=== PATIENT | male | born 1960 | race Two or more races ===

== ENCOUNTER 2021-12-31 10:54 | Inpatient (IN) | payer MEDICAID, MEDICARE, OTHER ==
[~2021-12-31] VITALS: Ht 185.4 cm; Wt 107.7 kg
[2021-12-31 11:41] LABS: Basophils # (auto) 0 10 ^3/uL (0-0.2); Basophils % (auto) 0.6 % (0.0-2.0); Eosinophils # (auto) 0.1 10 ^3/uL (0-0.8); Lymphocytes # (auto) 1.2 10 ^3/uL (0.4-5.4); Monocytes # (auto) 0.5 10 ^3/uL (0-1.3); White Blood Cell 5.7 10^3/uL (4.4-10.8)
[2021-12-31 11:44] LABS: Eosinophils % (auto) 2.2 % (0.0-7.0); Hematocrit 33.8 % (41.0-53.0); Hemoglobin 10.8 g/dL (13.5-17.5); Lymphocytes % (auto) 20.7 % (10.0-50.0); Mean Corpuscular Hgb Conc. 31.9 g/dL (32.0-36.0); Mean Corpuscular Volume 84.7 fL (80.0-100.0); Monocytes % (auto) 9.2 % (0.0-12.0); Neutrophils # (auto) 3.8 10 ^3/uL (1.6-8.6); Neutrophils % (auto) 67.3 % (37.0-80.0); Red Blood Cells 3.99 10^6/uL (4.5-5.90); Red Cell Distribution Width 13.7 % (11.8-14.3)
[2021-12-31 12:01] LABS: Albumin 3.3 g/dL (3.4-5.0); Calcium 9.7 mg/dL (8.5-10.1); Potassium 4.2 mmol/L (3.5-5.1)
[2021-12-31 12:05] LABS: BUN/Creatinine Ratio 18.3; Bilirubin, Total 0.7 mg/dL (0.2-1.0); Total Protein 7.5 g/dL (6.4-8.2)
[2021-12-31] MEDS ORDERED: IOHEXOL 300 MG/ML 100ML BOTTLE IJ ONE (13:24)
[2021-12-31] MEDS ORDERED: SODIUM CHLORIDE 0.9% 500 ML IVB ONE (13:30)
[2021-12-31] MEDS ORDERED: SODIUM CHLORIDE 0.9% 1,000 ML IV ONE (13:30)
[2021-12-31 13:32] LABS: Magnesium 1.7 mg/dL (1.6-2.6)
[2021-12-31 14:01] LABS: INR 1.11 (0.9-1.15); Partial Thromboplastin Time 30.1 sec (23.6-33.0)
[2021-12-31 14:59] LABS: Urine Bacteria NONE SEEN /hpf (None Seen); Urine Blood Negative /uL (Negative); Urine Specific Gravity 1.012 (1.001-1.035); Urine WBC <1 /hpf (0 - 3)
[2021-12-31] MEDS ORDERED: DOCUSATE SOD 100 MG CAP PO PRN (18:30)
[2021-12-31] MEDS ORDERED: ONDANSETRON HCL 4 MG/2 ML VIAL IV PRN (18:30)
[2021-12-31] MEDS ORDERED: HYDROcodone-ACET 5/325MG TAB PO PRN (18:30)
[2021-12-31] MEDS ORDERED: PANTOPRAZOLE 40mg/50ML NS AE 50 ML IV ONE (18:30)
[2021-12-31] MEDS ORDERED: WARF2TAB49 PO (22:05)
[2022-01-01 01:01] LABS: Basophils # (auto) 0 10 ^3/uL (0-0.2); Basophils % (auto) 0.6 % (0.0-2.0); Eosinophils # (auto) 0.1 10 ^3/uL (0-0.8); Eosinophils % (auto) 2.3 % (0.0-7.0); Hematocrit 33.6 % (41.0-53.0); Lymphocytes # (auto) 1.5 10 ^3/uL (0.4-5.4); Lymphocytes % (auto) 26.2 % (10.0-50.0); Mean Corpuscular Hgb Conc. 32.6 g/dL (32.0-36.0); Mean Corpuscular Volume 85.8 fL (80.0-100.0); Monocytes # (auto) 0.5 10 ^3/uL (0-1.3); Monocytes % (auto) 8.7 % (0.0-12.0); Neutrophils # (auto) 3.6 10 ^3/uL (1.6-8.6); Neutrophils % (auto) 62.2 % (37.0-80.0); Red Blood Cells 3.92 10^6/uL (4.5-5.90); Red Cell Distribution Width 13.9 % (11.8-14.3); White Blood Cell 5.8 10^3/uL (4.4-10.8)
[2022-01-01 05:00] VITALS: BP 102/62
[2022-01-01 05:56] LABS: Basophils # (auto) 0 10 ^3/uL (0-0.2); Basophils % (auto) 0.7 % (0.0-2.0); Eosinophils # (auto) 0.1 10 ^3/uL (0-0.8); Eosinophils % (auto) 3.1 % (0.0-7.0); Hematocrit 32.9 % (41.0-53.0); Hemoglobin 10.6 g/dL (13.5-17.5); Lymphocytes # (auto) 1.4 10 ^3/uL (0.4-5.4); Lymphocytes % (auto) 30.6 % (10.0-50.0); Mean Corpuscular Hemoglobin 27.2 pg (28.0-32.0); Mean Corpuscular Hgb Conc. 32.1 g/dL (32.0-36.0); Mean Corpuscular Volume 84.7 fL (80.0-100.0); Monocytes # (auto) 0.5 10 ^3/uL (0-1.3); Monocytes % (auto) 10.2 % (0.0-12.0); Neutrophils # (auto) 2.5 10 ^3/uL (1.6-8.6); Neutrophils % (auto) 55.4 % (37.0-80.0); Nucleated Red Blood Cells % 0.1 %; Red Blood Cells 3.88 10^6/uL (4.5-5.90); Red Cell Distribution Width 13.7 % (11.8-14.3); White Blood Cell 4.5 10^3/uL (4.4-10.8)
[2022-01-01 06:15] LABS: Calcium 8.9 mg/dL (8.5-10.1); Potassium 4.3 mmol/L (3.5-5.1)
[2022-01-01 06:18] LABS: BUN/Creatinine Ratio 14.3
[2022-01-01 08:00] VITALS: BP 102/61
[2022-01-01] MEDS: PANTOPRAZOLE 40 MG/10 ML VIAL INJ IV SCH ×2 (11:42→21:38)
[2022-01-01 12:00] VITALS: BP 111/69
[2022-01-01 13:16] LABS: Basophils # (auto) 0 10 ^3/uL (0-0.2); Basophils % (auto) 0.5 % (0.0-2.0); Eosinophils # (auto) 0.1 10 ^3/uL (0-0.8); Eosinophils % (auto) 2.2 % (0.0-7.0); Hematocrit 36.4 % (41.0-53.0); Hemoglobin 11.4 g/dL (13.5-17.5); Lymphocytes # (auto) 0.9 10 ^3/uL (0.4-5.4); Mean Corpuscular Hemoglobin 26.7 pg (28.0-32.0); Mean Corpuscular Hgb Conc. 31.3 g/dL (32.0-36.0); Mean Corpuscular Volume 85.2 fL (80.0-100.0); Monocytes # (auto) 0.3 10 ^3/uL (0-1.3); Monocytes % (auto) 7.8 % (0.0-12.0); Neutrophils # (auto) 3.1 10 ^3/uL (1.6-8.6); Neutrophils % (auto) 68.5 % (37.0-80.0); Red Blood Cells 4.27 10^6/uL (4.5-5.90); Red Cell Distribution Width 13.8 % (11.8-14.3); White Blood Cell 4.5 10^3/uL (4.4-10.8)
[2022-01-01 16:00] VITALS: BP 116/67
[2022-01-01] MEDS: ACETAMINOPHEN 325 MG TAB PO PRN (16:40)
[2022-01-01 18:29] LABS: Basophils # (auto) 0 10 ^3/uL (0-0.2); Basophils % (auto) 0.5 % (0.0-2.0); Eosinophils # (auto) 0.1 10 ^3/uL (0-0.8); Eosinophils % (auto) 2.7 % (0.0-7.0); Hematocrit 34.1 % (41.0-53.0); Hemoglobin 10.9 g/dL (13.5-17.5); Lymphocytes # (auto) 1.3 10 ^3/uL (0.4-5.4); Lymphocytes % (auto) 24.4 % (10.0-50.0); Mean Corpuscular Hemoglobin 27.5 pg (28.0-32.0); Mean Corpuscular Hgb Conc. 32.1 g/dL (32.0-36.0); Mean Corpuscular Volume 85.6 fL (80.0-100.0); Monocytes # (auto) 0.4 10 ^3/uL (0-1.3); Monocytes % (auto) 8.3 % (0.0-12.0); Neutrophils # (auto) 3.3 10 ^3/uL (1.6-8.6); Neutrophils % (auto) 64.1 % (37.0-80.0); Nucleated Red Blood Cells % 0.1 %; Red Blood Cells 3.98 10^6/uL (4.5-5.90); Red Cell Distribution Width 13.5 % (11.8-14.3); White Blood Cell 5.2 10^3/uL (4.4-10.8)
[2022-01-01 21:32] VITALS: BP 115/69
[2022-01-02 05:00] VITALS: BP 103/63
[2022-01-02 05:19] LABS: Basophils # (auto) 0 10 ^3/uL (0-0.2); Basophils % (auto) 0.1 % (0.0-2.0); Eosinophils # (auto) 0 10 ^3/uL (0-0.8); Hematocrit 34.7 % (41.0-53.0); Hemoglobin 11.3 g/dL (13.5-17.5); Lymphocytes # (auto) 0.4 10 ^3/uL (0.4-5.4); Lymphocytes % (auto) 9.8 % (10.0-50.0); Mean Corpuscular Hemoglobin 27.7 pg (28.0-32.0); Mean Corpuscular Hgb Conc. 32.4 g/dL (32.0-36.0); Mean Corpuscular Volume 85.3 fL (80.0-100.0); Monocytes # (auto) 0.1 10 ^3/uL (0-1.3); Monocytes % (auto) 1.5 % (0.0-12.0); Neutrophils # (auto) 3.3 10 ^3/uL (1.6-8.6); Neutrophils % (auto) 88.6 % (37.0-80.0); Nucleated Red Blood Cells % 0.1 %; Red Blood Cells 4.07 10^6/uL (4.5-5.90); Red Cell Distribution Width 13.6 % (11.8-14.3); White Blood Cell 3.7 10^3/uL (4.4-10.8)
[2022-01-02 05:31] LABS: Calcium 9.5 mg/dL (8.5-10.1); Potassium 4.5 mmol/L (3.5-5.1)
[2022-01-02 08:00] VITALS: BP 120/69
[2022-01-02 09:00] VITALS: BP 120/69
[2022-01-02] MEDS: PANTOPRAZOLE 40 MG/10 ML VIAL INJ IV SCH (11:01)
[2022-01-02] MEDS: ACETAMINOPHEN 325 MG TAB PO PRN (11:44)
[2022-01-02 13:00] VITALS: BP 116/73
[2022-01-02] MEDS ORDERED: MIDAZOLAM HCL 2MG/2ML 2ml VIAL (1mg/ml) ONE (15:04)
[2022-01-02] MEDS ORDERED: fentaNYL CITRATE 100 MCG/2 ML VL ONE (15:04)
[2022-01-02] MEDS ORDERED: PROPOFOL 10 MG/ML 20 ML IV ONE (15:33)
[2022-01-02 16:35] VITALS: BP 113/64
[2022-01-02] MEDS: SUCRALFATE 1 GM/10 ML ORAL SUSP PO SCH ×2 (17:23→21:31)
[2022-01-02] MEDS: PANTOPRAZOLE 40 MG TAB PO SCH (21:31)
[2022-01-02 22:00] VITALS: BP 115/75
[2022-01-03 05:00] VITALS: BP 105/63
[2022-01-03 06:11] LABS: Basophils # (auto) 0 10 ^3/uL (0-0.2); Basophils % (auto) 0.5 % (0.0-2.0); Eosinophils # (auto) 0.1 10 ^3/uL (0-0.8); Eosinophils % (auto) 1.1 % (0.0-7.0); Hematocrit 36.5 % (41.0-53.0); Hemoglobin 11.6 g/dL (13.5-17.5); Lymphocytes # (auto) 1.5 10 ^3/uL (0.4-5.4); Lymphocytes % (auto) 27.7 % (10.0-50.0); Mean Corpuscular Hemoglobin 27.1 pg (28.0-32.0); Mean Corpuscular Hgb Conc. 31.8 g/dL (32.0-36.0); Mean Corpuscular Volume 85.4 fL (80.0-100.0); Monocytes # (auto) 0.4 10 ^3/uL (0-1.3); Monocytes % (auto) 7.5 % (0.0-12.0); Neutrophils # (auto) 3.5 10 ^3/uL (1.6-8.6); Neutrophils % (auto) 63.2 % (37.0-80.0); Nucleated Red Blood Cells % 0.1 %; Red Blood Cells 4.28 10^6/uL (4.5-5.90); Red Cell Distribution Width 13.5 % (11.8-14.3); White Blood Cell 5.5 10^3/uL (4.4-10.8)
[2022-01-03 06:33] LABS: BUN/Creatinine Ratio 15.6; Calcium 9.1 mg/dL (8.5-10.1); Potassium 4.1 mmol/L (3.5-5.1)
[2022-01-03] MEDS: SUCRALFATE 1 GM/10 ML ORAL SUSP PO SCH ×2 (06:46→11:13)
[2022-01-03 08:00] VITALS: BP 104/51
[2022-01-03] MEDS: PANTOPRAZOLE 40 MG TAB PO SCH (09:40)
[2022-01-03] MEDS ORDERED: PANT40T PO (10:28)
[2022-01-03] MEDS ORDERED: SUCR1SUS10 PO (10:28)
[2022-01-03 12:00] VITALS: BP 103/67
== END 2022-01-03 15:19 | disposition home or self-care (01) | DRG 378 ==
LOC: ER 10:54 → EDBD 10:54 → TELE 18:20 → TELE-WESTW 23:20
PROVIDERS: ADMIT Internal Medicine; ATTEND Internal Medicine Pulmonary Disease
PROC: 0DJ08ZZ Inspection of Upper Intestinal Tract, Via Natural or Artificial Opening Endoscopic (ICD-10-PCS; principal; 2022-01-02 15:15)
DX: K92.2 Gastrointestinal hemorrhage, unspecified (principal); D62 Acute posthemorrhagic anemia; J44.9 Chronic obstructive pulmonary disease, unspecified; K22.2 Esophageal obstruction; K22.70 Barrett's esophagus without dysplasia; Z20.822 Contact with and (suspected) exposure to COVID-19; K44.9 Diaphragmatic hernia without obstruction or gangrene; Z79.01 Long term (current) use of anticoagulants; Z86.711 Personal history of pulmonary embolism; Z86.718 Personal history of other venous thrombosis and embolism; Z88.0 Allergy status to penicillin
CPT/HCPCS: 36415; 71046; 74177; 80048; 80053; 81001; 82270; 82728; 83540; 83550; 83690; 83735; 85025; 85045; 85610; 85730; 93005; 96360; 96361; C9113; G0378; J2250; J2704

== ENCOUNTER 2022-03-09 14:27 | Inpatient (IN) | payer MEDICARE ==
[~2022-03-09] VITALS: Ht 188 cm; Wt 114.7 kg
[~2022-03-09 14:27] MED LIST: PANT40T PO; SUCR1SUS10 PO; WARF2TAB49 PO
[2022-03-09 16:23] LABS: Basophils # (auto) 0.1 10 ^3/uL (0-0.2); Basophils % (auto) 0.7 % (0.0-2.0); Eosinophils # (auto) 0.2 10 ^3/uL (0-0.8); Eosinophils % (auto) 2.7 % (0.0-7.0); Hematocrit 37.6 % (41.0-53.0); Lymphocytes # (auto) 1.1 10 ^3/uL (0.4-5.4); Mean Corpuscular Hemoglobin 26.9 pg (28.0-32.0); Mean Corpuscular Hgb Conc. 31.8 g/dL (32.0-36.0); Mean Corpuscular Volume 84.4 fL (80.0-100.0); Monocytes # (auto) 0.6 10 ^3/uL (0-1.3); Monocytes % (auto) 7.5 % (0.0-12.0); Neutrophils % (auto) 75.1 % (37.0-80.0); Red Blood Cells 4.46 10^6/uL (4.5-5.90); Red Cell Distribution Width 14.3 % (11.8-14.3)
[2022-03-09 16:30] LABS: Potassium 3.8 mmol/L (3.5-5.1)
[2022-03-09 16:34] LABS: Albumin 3.7 g/dL (3.4-5.0); BUN/Creatinine Ratio 14.4
[2022-03-09 16:36] LABS: Bilirubin, Total 1.2 mg/dL (0.2-1.0); Total Protein 8.2 g/dL (6.4-8.2)
[2022-03-09] MEDS ORDERED: metroNIDAZOLE 500MG/100ML 100 ML IV ONE (19:00)
[2022-03-09] MEDS ORDERED: SODIUM CHLORIDE 0.9% 1,000 ML IV ONE (19:00)
[2022-03-09] MEDS ORDERED: VANCOMYCIN 1GM/250ML 250 ML IV ONE (19:00)
[2022-03-09] MEDS ORDERED: diphenhdrAMINE HCL 50 MG/1 ML VL IV ONE (19:00)
[2022-03-09] MEDS ORDERED: CEFEPIME 2 GM in SODIUM CHL 0.9% 50 ML IV ONE (19:00)
[2022-03-09 20:01] LABS: INR 1.27 (0.9-1.15)
[2022-03-09] MEDS ORDERED: DOCUSATE SOD 100 MG CAP PO PRN (21:15)
[2022-03-09] MEDS ORDERED: ACETAMINOPHEN 325 MG TAB PO PRN (21:15)
[2022-03-09] MEDS ORDERED: LORazepam 0.5 MG TAB PO PRN (21:15)
[2022-03-09] MEDS ORDERED: VANCOMYCIN PER PHARMACY 0 MG IV SCH (21:15)
[2022-03-09] MEDS ORDERED: HYDROcodone-ACET 5/325MG TAB PO PRN (21:15)
[2022-03-09 21:23] VITALS: BP 123/75
[2022-03-09] MEDS ORDERED: CEFEPIME 2 GM in SODIUM CHL 0.9% 50 ML IV SCH (22:00)
[2022-03-10] MEDS ORDERED: ALBUTEROL SULF 2.5 MG/0.5ML(0.5%) NEB SOLN NEB SCH (02:00)
[2022-03-10] MEDS ORDERED: ALBUTEROL SULF 2.5 MG/0.5ML(0.5%) NEB SOLN NEB PRN (06:00)
[2022-03-10 06:57] LABS: Basophils # (auto) 0 10 ^3/uL (0-0.2); Basophils % (auto) 0.5 % (0.0-2.0); Eosinophils # (auto) 0.2 10 ^3/uL (0-0.8); Eosinophils % (auto) 2.9 % (0.0-7.0); Hematocrit 34.5 % (41.0-53.0); Hemoglobin 10.9 g/dL (13.5-17.5); Lymphocytes # (auto) 1.4 10 ^3/uL (0.4-5.4); Lymphocytes % (auto) 22.8 % (10.0-50.0); Mean Corpuscular Hgb Conc. 31.7 g/dL (32.0-36.0); Mean Corpuscular Volume 85.1 fL (80.0-100.0); Monocytes # (auto) 0.5 10 ^3/uL (0-1.3); Neutrophils # (auto) 3.9 10 ^3/uL (1.6-8.6); Neutrophils % (auto) 64.8 % (37.0-80.0); Red Blood Cells 4.05 10^6/uL (4.5-5.90); Red Cell Distribution Width 14.1 % (11.8-14.3)
[2022-03-10] MEDS: VANCOMYCIN 1GM/250ML 250 ML IV SCH ×3 (06:58→22:30)
[2022-03-10 07:16] LABS: BUN/Creatinine Ratio 19.4; Calcium 8.9 mg/dL (8.5-10.1)
[2022-03-10] MEDS: ONDANSETRON HCL 4 MG/2 ML VIAL IV PRN ×3 (08:38→20:05)
[2022-03-10] MEDS: MORPHINE SULFATE INJ 2 MG/ml SYRG IV PRN ×3 (08:38→20:05)
[2022-03-10] MEDS: ENOXAPARIN SOD 120 MG/0.8 ML SYRINGE SC SCH ×2 (13:15→21:52)
[2022-03-10] MEDS: CLINDAMYCIN 600MG IV 50 ML IV SCH ×2 (14:29→21:52)
[2022-03-10 14:55] VITALS: BP 102/53
[2022-03-10] MEDS ORDERED: WARF5TAB71 PO (15:57)
[2022-03-10 17:00] VITALS: BP 97/58
[2022-03-10 22:02] LABS: Albumin 3.2 g/dL (3.4-5.0); BUN/Creatinine Ratio 16.4; Calcium 8.6 mg/dL (8.5-10.1); Phosphorus 3.3 mg/dL (2.5-4.90)
[2022-03-10 23:12] VITALS: BP 95/59
[2022-03-11 06:05] VITALS: BP 96/46
[2022-03-11] MEDS: CLINDAMYCIN 600MG IV 50 ML IV SCH ×3 (06:47→21:43)
[2022-03-11 09:08] VITALS: BP 104/65
[2022-03-11] MEDS: ENOXAPARIN SOD 120 MG/0.8 ML SYRINGE SC SCH ×2 (09:55→21:43)
[2022-03-11] MEDS: ONDANSETRON HCL 4 MG/2 ML VIAL IV PRN (10:46)
[2022-03-11] MEDS: MORPHINE SULFATE INJ 2 MG/ml SYRG IV PRN (11:05)
[2022-03-11 12:30] VITALS: BP 95/52
[2022-03-11] MEDS: VANCOMYCIN 1GM/250ML 250 ML IV SCH (14:55)
[2022-03-11 17:00] VITALS: BP 103/53
[2022-03-12 00:11] VITALS: BP 107/44
[2022-03-12] MEDS: VANCOMYCIN 1GM/250ML 250 ML IV SCH (03:09)
[2022-03-12] MEDS: CLINDAMYCIN 600MG IV 50 ML IV SCH (06:08)
[2022-03-12 06:12] VITALS: BP 114/61
[2022-03-12] MEDS ORDERED: APIX5TAB PO (08:41)
[2022-03-12] MEDS ORDERED: HYDR-4902 PO (08:41)
[2022-03-12] MEDS ORDERED: LEVO500T31 PO (08:41)
[2022-03-12] MEDS ORDERED: CLIN300C8 PO (08:41)
[2022-03-12 09:08] VITALS: BP 101/66
[2022-03-12] MEDS ORDERED: APIXABAN 5 MG TAB PO ONE (09:15)
[2022-03-12 10:46] VITALS: BP 106/45
[2022-03-12 13:00] VITALS: BP 105/64
== END 2022-03-12 14:00 | disposition home or self-care (01) | DRG 918 ==
LOC: ER 14:37 → OVERFLOW 21:02 → CENTRAL 03-10 14:57
PROVIDERS: ADMIT Hospitalist; ATTEND Hospitalist
DX: T63.301A Toxic effect of unspecified spider venom, accidental (unintentional), initial encounter (principal); L02.211 Cutaneous abscess of abdominal wall; E44.0 Moderate protein-calorie malnutrition; J44.1 Chronic obstructive pulmonary disease with (acute) exacerbation; I82.432 Acute embolism and thrombosis of left popliteal vein; L03.311 Cellulitis of abdominal wall; Z20.822 Contact with and (suspected) exposure to COVID-19; R79.1 Abnormal coagulation profile; Z79.01 Long term (current) use of anticoagulants; Z86.711 Personal history of pulmonary embolism; Z99.81 Dependence on supplemental oxygen; Z68.32 Body mass index [BMI] 32.0-32.9, adult; Z88.0 Allergy status to penicillin; Z80.1 Family history of malignant neoplasm of trachea, bronchus and lung; Z82.0 Family history of epilepsy and other diseases of the nervous system; Z86.718 Personal history of other venous thrombosis and embolism; Y92.89 Other specified places as the place of occurrence of the external cause
CPT/HCPCS: 36415; 71045; 80048; 80053; 80069; 80202; 82565; 83880; 84484; 85025; 85610; 93005; 93971; 96361; 96365; 96375; G0378; J2405; J3490

== ENCOUNTER 2022-07-18 18:17 | Inpatient (IN) | payer OTHER ==
[~2022-07-18] VITALS: Ht 182.9 cm; Wt 119.0 kg
[~2022-07-18 18:17] MED LIST changes: +APIX5TAB PO; +CLIN300C8 PO; +HYDR-4902 PO; +LEVO500T31 PO; +WARF5TAB71 PO
[2022-07-18 19:31] LABS: Basophils # (auto) 0 10 ^3/uL (0-0.2); Basophils % (auto) 0.5 % (0.0-2.0); Eosinophils # (auto) 0.2 10 ^3/uL (0-0.8); Hematocrit 35.5 % (41.0-53.0); Hemoglobin 11.9 g/dL (13.5-17.5); Lymphocytes % (auto) 15.1 % (10.0-50.0); Mean Corpuscular Hemoglobin 28.3 pg (28.0-32.0); Mean Corpuscular Hgb Conc. 33.6 g/dL (32.0-36.0); Mean Corpuscular Volume 84.1 fL (80.0-100.0); Monocytes # (auto) 0.5 10 ^3/uL (0-1.3); Monocytes % (auto) 7.7 % (0.0-12.0); Neutrophils # (auto) 4.8 10 ^3/uL (1.6-8.6); Neutrophils % (auto) 73.7 % (37.0-80.0); Red Blood Cells 4.22 10^6/uL (4.5-5.90); White Blood Cell 6.5 10^3/uL (4.4-10.8)
[2022-07-18 19:50] LABS: Albumin 3.7 g/dL (3.4-5.0); BUN/Creatinine Ratio 19.7; Calcium 10.6 mg/dL (8.5-10.1); Potassium 4.1 mmol/L (3.5-5.1)
[2022-07-18 19:52] LABS: Bilirubin, Total 0.8 mg/dL (0.2-1.0); Total Protein 7.9 g/dL (6.4-8.2)
[2022-07-18 20:01] LABS: INR 1.06 (0.9-1.15); Partial Thromboplastin Time 29.3 sec (24.6-33.4)
[2022-07-19] MEDS ORDERED: CLINDAMYCIN 900MG IV 50 ML IV ONE (04:45)
[2022-07-19] MEDS ORDERED: IOHEXOL 350 MG/ML 100ML IJ ONE (04:59)
[2022-07-19 06:30] LABS: INR 1.1 (0.9-1.15); Partial Thromboplastin Time 27.6 sec (24.6-33.4)
[2022-07-19] MEDS ORDERED: HYDROcodone-ACET 5/325MG TAB PO PRN (06:45)
[2022-07-19] MEDS ORDERED: ALBUTEROL MEDNEB 2.5 mg/3ml NEB NEB PRN (06:45)
[2022-07-19] MEDS ORDERED: TEMAZEPAM 15 MG CAP PO PRN (06:45)
[2022-07-19] MEDS ORDERED: ACETAMINOPHEN 325 MG TAB PO PRN (06:45)
[2022-07-19] MEDS ORDERED: ONDANSETRON HCL 4 MG/2 ML VIAL IV PRN (06:45)
[2022-07-19] MEDS: LISINOPRIL 10 MG TAB PO SCH (10:00)
[2022-07-19] MEDS: PANTOPRAZOLE 40 MG TAB PO SCH ×2 (10:00→10:33)
[2022-07-19] MEDS: ENOXAPARIN SOD 150 MG/1 ML SYRINGE SC SCH ×3 (10:33→15:41)
[2022-07-19 13:37] VITALS: BP 111/61
[2022-07-19] MEDS ORDERED: CLINDAMYCIN 600MG IV 50 ML IV SCH (14:00)
[2022-07-19] MEDS ORDERED: cefTRIAXone 1GM/50ML D5W 50 ML IV ONE (14:30)
[2022-07-19 16:02] LABS: Urine WBC None Seen /hpf (0 - 3)
[2022-07-19 16:20] LABS: Urine Bacteria NONE SEEN /hpf (None Seen); Urine Blood Negative /uL (Negative); Urine Mucus FEW (None Seen); Urine Specific Gravity 1.037 (1.001-1.035)
[2022-07-20 05:00] VITALS: BP 110/74
[2022-07-20 07:23] LABS: Basophils # (auto) 0 10 ^3/uL (0-0.2); Basophils % (auto) 0.9 % (0.0-2.0); Eosinophils # (auto) 0.2 10 ^3/uL (0-0.8); Eosinophils % (auto) 3.9 % (0.0-7.0); Hematocrit 33.6 % (41.0-53.0); Hemoglobin 11.3 g/dL (13.5-17.5); Lymphocytes # (auto) 1.1 10 ^3/uL (0.4-5.4); Lymphocytes % (auto) 21.4 % (10.0-50.0); Mean Corpuscular Hemoglobin 28.6 pg (28.0-32.0); Mean Corpuscular Hgb Conc. 33.6 g/dL (32.0-36.0); Mean Corpuscular Volume 85.2 fL (80.0-100.0); Monocytes # (auto) 0.5 10 ^3/uL (0-1.3); Monocytes % (auto) 9.4 % (0.0-12.0); Neutrophils # (auto) 3.3 10 ^3/uL (1.6-8.6); Neutrophils % (auto) 64.4 % (37.0-80.0); Nucleated Red Blood Cells % 0.1 %; Red Blood Cells 3.95 10^6/uL (4.5-5.90); Red Cell Distribution Width 13.9 % (11.8-14.3); White Blood Cell 5.1 10^3/uL (4.4-10.8)
[2022-07-20 07:30] VITALS: BP 101/63
[2022-07-20 07:38] LABS: Albumin 3.2 g/dL (3.4-5.0); Calcium 8.9 mg/dL (8.5-10.1); Potassium 4.2 mmol/L (3.5-5.1)
[2022-07-20 07:41] LABS: BUN/Creatinine Ratio 22.9; Bilirubin, Total 0.7 mg/dL (0.2-1.0); Total Protein 6.5 g/dL (6.4-8.2)
[2022-07-20 09:00] VITALS: BP 104/66
[2022-07-20] MEDS ORDERED: VANCOMYCIN PER PHARMACY 0 MG IV SCH (09:30)
[2022-07-20] MEDS: cefTRIAXone 1GM/50ML D5W 50 ML IV SCH (09:45)
[2022-07-20] MEDS: PANTOPRAZOLE 40 MG TAB PO SCH (09:46)
[2022-07-20] MEDS: ENOXAPARIN SOD 150 MG/1 ML SYRINGE SC SCH ×2 (09:47→20:53)
[2022-07-20] MEDS: LISINOPRIL 10 MG TAB PO SCH (09:47)
[2022-07-20] MEDS ORDERED: VANCOMYCIN 1GM/250ML 250 ML IV ONE (10:45)
[2022-07-20 13:00] VITALS: BP 104/61
[2022-07-20 17:00] VITALS: BP 105/68
[2022-07-20] MEDS: VANCOMYCIN 1GM/250ML 250 ML IV SCH (20:53)
[2022-07-20 22:00] VITALS: BP 107/68
[2022-07-21] MEDS: VANCOMYCIN 1GM/250ML 250 ML IV SCH (04:10)
[2022-07-21 05:00] VITALS: BP 98/51
[2022-07-21 06:39] LABS: Basophils # (auto) 0 10 ^3/uL (0-0.2); Basophils % (auto) 0.6 % (0.0-2.0); Eosinophils # (auto) 0.2 10 ^3/uL (0-0.8); Eosinophils % (auto) 4.4 % (0.0-7.0); Hematocrit 33.6 % (41.0-53.0); Hemoglobin 10.8 g/dL (13.5-17.5); Lymphocytes # (auto) 1.5 10 ^3/uL (0.4-5.4); Lymphocytes % (auto) 29.2 % (10.0-50.0); Mean Corpuscular Hemoglobin 27.3 pg (28.0-32.0); Mean Corpuscular Volume 85.4 fL (80.0-100.0); Monocytes # (auto) 0.5 10 ^3/uL (0-1.3); Monocytes % (auto) 10.7 % (0.0-12.0); Neutrophils # (auto) 2.8 10 ^3/uL (1.6-8.6); Neutrophils % (auto) 55.1 % (37.0-80.0); Nucleated Red Blood Cells % 0.1 %; Red Blood Cells 3.93 10^6/uL (4.5-5.90); Red Cell Distribution Width 14.1 % (11.8-14.3)
[2022-07-21 06:58] LABS: Albumin 3.1 g/dL (3.4-5.0); BUN/Creatinine Ratio 19.4; Calcium 9.5 mg/dL (8.5-10.1)
[2022-07-21 07:10] LABS: Bilirubin, Total 0.7 mg/dL (0.2-1.0); Total Protein 6.6 g/dL (6.4-8.2)
[2022-07-21 07:30] VITALS: BP 104/66
[2022-07-21 09:00] VITALS: BP 94/53
[2022-07-21] MEDS: PANTOPRAZOLE 40 MG TAB PO SCH (09:07)
[2022-07-21] MEDS: cefTRIAXone 1GM/50ML D5W 50 ML IV SCH (09:07)
[2022-07-21] MEDS: LISINOPRIL 10 MG TAB PO SCH (09:08)
[2022-07-21] MEDS: ENOXAPARIN SOD 150 MG/1 ML SYRINGE SC SCH ×2 (09:09→21:47)
[2022-07-21 13:00] VITALS: BP 102/59
[2022-07-21] MEDS: BACITRACIN-POLYMYXIN B OPTH(EYE) OINT 3.5GM OP SCH (15:50)
[2022-07-21 17:00] VITALS: BP 117/69
[2022-07-21] MEDS ORDERED: VANCOMYCIN 1GM/250ML 250 ML IV SCH (20:00)
[2022-07-21 22:00] VITALS: BP 127/78
[2022-07-22] MEDS: BACITRACIN-POLYMYXIN B OPTH(EYE) OINT 3.5GM OP SCH ×4 (00:57→21:43)
[2022-07-22 05:00] VITALS: BP 106/70
[2022-07-22 06:31] LABS: Basophils # (auto) 0 10 ^3/uL (0-0.2); Eosinophils # (auto) 0.1 10 ^3/uL (0-0.8); Hemoglobin 11.4 g/dL (13.5-17.5); Lymphocytes # (auto) 1.3 10 ^3/uL (0.4-5.4); Monocytes # (auto) 0.6 10 ^3/uL (0-1.3); Neutrophils # (auto) 5.2 10 ^3/uL (1.6-8.6); White Blood Cell 7.2 10^3/uL (4.4-10.8)
[2022-07-22 06:33] LABS: Basophils % (auto) 0.3 % (0.0-2.0); Eosinophils % (auto) 1.6 % (0.0-7.0); Hematocrit 35.7 % (41.0-53.0); Lymphocytes % (auto) 17.6 % (10.0-50.0); Mean Corpuscular Hgb Conc. 31.9 g/dL (32.0-36.0); Mean Corpuscular Volume 84.6 fL (80.0-100.0); Monocytes % (auto) 8.2 % (0.0-12.0); Neutrophils % (auto) 72.3 % (37.0-80.0); Red Blood Cells 4.23 10^6/uL (4.5-5.90); Red Cell Distribution Width 13.7 % (11.8-14.3)
[2022-07-22 06:41] LABS: Albumin 3.2 g/dL (3.4-5.0); Calcium 9.5 mg/dL (8.5-10.1); Potassium 4.3 mmol/L (3.5-5.1)
[2022-07-22 06:42] LABS: BUN/Creatinine Ratio 18.9
[2022-07-22 06:45] LABS: Bilirubin, Total 0.6 mg/dL (0.2-1.0)
[2022-07-22 09:16] VITALS: BP 94/62
[2022-07-22] MEDS: cefTRIAXone 1GM/50ML D5W 50 ML IV SCH (09:53)
[2022-07-22] MEDS: PANTOPRAZOLE 40 MG TAB PO SCH (09:53)
[2022-07-22] MEDS: ENOXAPARIN SOD 150 MG/1 ML SYRINGE SC SCH ×2 (09:54→21:42)
[2022-07-22 10:23] VITALS: BP 94/62
[2022-07-22] MEDS ORDERED: VANCOMYCIN 1GM/250ML 250 ML IV SCH (12:15)
[2022-07-22 12:43] VITALS: BP 118/81
[2022-07-22] MEDS: VANCOMYCIN 1GM/250ML 250 ML IV SCH (14:41)
[2022-07-22 16:45] VITALS: BP 111/67
[2022-07-22 22:00] VITALS: BP 115/74
[2022-07-23 05:00] VITALS: BP 108/69
[2022-07-23 06:25] LABS: Basophils # (auto) 0 10 ^3/uL (0-0.2); Basophils % (auto) 0.6 % (0.0-2.0); Eosinophils # (auto) 0.3 10 ^3/uL (0-0.8); Eosinophils % (auto) 3.9 % (0.0-7.0); Hematocrit 36.9 % (41.0-53.0); Hemoglobin 11.6 g/dL (13.5-17.5); Lymphocytes # (auto) 1.4 10 ^3/uL (0.4-5.4); Lymphocytes % (auto) 21.5 % (10.0-50.0); Mean Corpuscular Hgb Conc. 31.4 g/dL (32.0-36.0); Mean Corpuscular Volume 85.9 fL (80.0-100.0); Monocytes # (auto) 0.7 10 ^3/uL (0-1.3); Monocytes % (auto) 10.3 % (0.0-12.0); Neutrophils # (auto) 4.2 10 ^3/uL (1.6-8.6); Neutrophils % (auto) 63.7 % (37.0-80.0); Red Cell Distribution Width 13.9 % (11.8-14.3); White Blood Cell 6.5 10^3/uL (4.4-10.8)
[2022-07-23 07:06] LABS: Albumin 3.4 g/dL (3.4-5.0); Calcium 9.7 mg/dL (8.5-10.1); Potassium 3.9 mmol/L (3.5-5.1)
[2022-07-23 07:08] LABS: BUN/Creatinine Ratio 18.1
[2022-07-23 07:20] LABS: Bilirubin, Total 0.7 mg/dL (0.2-1.0); Total Protein 7.8 g/dL (6.4-8.2)
[2022-07-23] MEDS: VANCOMYCIN 1GM/250ML 250 ML IV SCH (07:38)
[2022-07-23] MEDS: BACITRACIN-POLYMYXIN B OPTH(EYE) OINT 3.5GM OP SCH ×2 (07:38→14:22)
[2022-07-23 09:00] VITALS: BP 109/67
[2022-07-23] MEDS ORDERED: APIX5TAB4 PO (10:50)
[2022-07-23] MEDS ORDERED: SULF800T7 PO (10:50)
[2022-07-23] MEDS ORDERED: BACIOIN EX (10:56)
[2022-07-23] MEDS: PANTOPRAZOLE 40 MG TAB PO SCH (11:22)
[2022-07-23] MEDS: cefTRIAXone 1GM/50ML D5W 50 ML IV SCH (11:22)
[2022-07-23] MEDS: ENOXAPARIN SOD 150 MG/1 ML SYRINGE SC SCH (11:22)
[2022-07-23 12:06] VITALS: BP 109/67
[2022-07-23 13:00] VITALS: BP 131/71
[2022-07-23 16:55] VITALS: BP 129/79
== END 2022-07-23 16:00 | disposition home or self-care (01) | DRG 299 ==
LOC: ER 18:17 → EDUNIT# 18:17 → EDBD 18:17 → OVERFLOW 07-19 06:47 → CENTRAL 07-19 20:17
PROVIDERS: ADMIT Nurse Practitioner; ATTEND Student in an Organized Health Care Education/Training Program
DX: I82.431 Acute embolism and thrombosis of right popliteal vein (principal); J96.91 Respiratory failure, unspecified with hypoxia; L03.115 Cellulitis of right lower limb; L97.209 Non-pressure chronic ulcer of unspecified calf with unspecified severity; I10 Essential (primary) hypertension; Z20.822 Contact with and (suspected) exposure to COVID-19; J44.9 Chronic obstructive pulmonary disease, unspecified; Z91.199 Patient's noncompliance with other medical treatment and regimen due to unspecified reason; Z88.0 Allergy status to penicillin; Z86.718 Personal history of other venous thrombosis and embolism; Z91.14 Patient's other noncompliance with medication regimen; Z86.711 Personal history of pulmonary embolism; Z82.0 Family history of epilepsy and other diseases of the nervous system; Z80.1 Family history of malignant neoplasm of trachea, bronchus and lung
CPT/HCPCS: 36415; 73701; 80053; 80202; 81001; 83605; 83880; 85025; 85379; 85610; 85730; 86141; 87040; 87077; 87081; 87186; 87205; 87426; 93971; 96365; 96366; 96367; 96372; 97163; G0378; J0696; J2405; J3490

== ENCOUNTER 2023-04-14 13:37 | Inpatient (IN) | payer OTHER ==
[~2023-04-14] VITALS: Ht 185.4 cm; Wt 131.1 kg
[~2023-04-14 13:37] MED LIST changes: +APIX5TAB4 PO; +BACIOIN EX; +CLIN300C70 PO; -CLIN300C8 PO; -SUCR1SUS10 PO; +SUCR1SUS26 PO; +SULF800T23 PO; +WARF-66 PO; -WARF2TAB49 PO; +WARF4TAB69 PO; -WARF5TAB71 PO
[2023-04-14 14:14] LABS: Basophils # (auto) 0 10 ^3/uL (0-0.2); Basophils % (auto) 0.8 % (0.0-2.0); Eosinophils # (auto) 0.2 10 ^3/uL (0-0.8); Eosinophils % (auto) 3.1 % (0.0-7.0); Hematocrit 33.5 % (41.0-53.0); Hemoglobin 10.8 g/dL (13.5-17.5); Lymphocytes % (auto) 17.6 % (10.0-50.0); Mean Corpuscular Hemoglobin 27.9 pg (28.0-32.0); Mean Corpuscular Hgb Conc. 32.2 g/dL (32.0-36.0); Mean Corpuscular Volume 86.8 fL (80.0-100.0); Monocytes # (auto) 0.5 10 ^3/uL (0-1.3); Monocytes % (auto) 9.5 % (0.0-12.0); Neutrophils # (auto) 3.9 10 ^3/uL (1.6-8.6); Nucleated Red Blood Cells % 0.3 %; Red Blood Cells 3.86 10^6/uL (4.5-5.90); Red Cell Distribution Width 14.3 % (11.8-14.3); White Blood Cell 5.6 10^3/uL (4.4-10.8)
[2023-04-14 14:31] LABS: Alanine Aminotransferase 16 U/L (7-40); Albumin 3.8 g/dL (3.2-4.8); Alkaline Phosphatase 92 U/L (46-116); Anion Gap 7 (5-15); Aspartate Aminotransferase 19 U/L (13-40); BUN/Creatinine Ratio 21.3 (10.0-20.0); Blood Urea Nitrogen 13 mg/dL (9-23); Calcium 8.8 mg/dL (8.5-10.1); Carbon Dioxide 28 mmol/L (20-30); Chloride 106 mmol/L (98-107); Glucose 103 mg/dL (74-106); Potassium 4.6 mmol/L (3.5-5.1); Sodium 141 mmol/L (136-145); Total Protein 6.3 g/dL (5.7-8.2)
[2023-04-14] MEDS ORDERED: MORPHINE SULFATE INJ 2 MG/ml SYRG IV ONE (19:15)
[2023-04-14] MEDS ORDERED: ALBUTEROL SULF 2.5 MG/0.5ML(0.5%) NEB SOLN NEB ONE (19:15)
[2023-04-14] MEDS ORDERED: ASPirin 81 mg TAB PO ONE (19:15)
[2023-04-14] MEDS ORDERED: AZITHROMYCIN 500MG/ 250ML 250 ML IV ONE (19:15)
[2023-04-14] MEDS ORDERED: IPRATROPIUM BROM 0.5 MG/2.5ML INH SOL NEB ONE (19:15)
[2023-04-14] MEDS ORDERED: ACETAMINOPHEN 325 MG TAB PO PRN (19:15)
[2023-04-14] MEDS ORDERED: PANTOPRAZOLE 40 MG/10 ML VIAL INJ IV ONE (19:15)
[2023-04-14 19:21] VITALS: O2SAT 99
[2023-04-14] MEDS: cefTRIAXone 1GM/50ML D5W 50 ML IV SCH (19:40)
[2023-04-14] MEDS ORDERED: DexAMETHasone SOD PHOS 10MG/1ML VIAL INJ IV ONE (19:45)
[2023-04-14 21:16] LABS: Urine Bacteria NONE SEEN /hpf (None Seen); Urine Blood Negative /uL (Negative); Urine Clarity Clear (Clear); Urine Color Yellow (Yellow); Urine Mucus FEW (None Seen); Urine Protein, UAD TRACE (Negative); Urine Specific Gravity 1.026 (1.001-1.035); Urine WBC <1 /hpf (0 - 3); Urine pH 6.5 (5.0-8.0)
[2023-04-14 22:25] LABS: Lactic Acid w/Reflex 3.1 mmol/L (0.4-2.0)
[2023-04-15] VITALS (13 sets, daily range): BP systolic 106–125; BP diastolic 60–70; PULSE 74–103; RESP 16–22; TEMP 97.8–98.1; O2SAT 94–98
[2023-04-15] MEDS ORDERED: DexAMETHasone INJECTION 10 MG in SODIUM CHL 3% 500 ML IV SCH ×2
[2023-04-15] MEDS: NITROGLYCERIN 0.4 MG SL TAB SL PRN ×2 (01:07→11:52)
[2023-04-15] MEDS ORDERED: ALBUTEROL SULF 2.5 MG/0.5ML(0.5%) NEB SOLN NEB PRN (02:30)
[2023-04-15] MEDS ORDERED: ACETAMINOPHEN 325 MG TAB PO PRN (02:30)
[2023-04-15] MEDS ORDERED: NITROGLYCERIN 0.4 MG SL TAB SL PRN (02:30)
[2023-04-15] MEDS ORDERED: MORPHINE SULFATE INJ 2 MG/ml SYRG IV PRN (02:30)
[2023-04-15] MEDS ORDERED: ONDANSETRON HCL 4 MG/2 ML VIAL IV PRN (02:30)
[2023-04-15] MEDS: APIXABAN 5 MG TAB PO SCH ×2 (09:49→21:24)
[2023-04-15 15:47] LABS: COVID19 ANTIGEN SOFIA FIA NEGATIVE (NEGATIVE)
[2023-04-15] MEDS: cefTRIAXone 1GM/50ML D5W 50 ML IV SCH (20:00)
[2023-04-16] VITALS (8 sets, daily range): BP systolic 114–120; BP diastolic 60–70; PULSE 72–92; RESP 19–20; TEMP 36.7; O2SAT 94–98
[2023-04-16 06:02] LABS: Chloride 105 mmol/L (98-107); Potassium 4.2 mmol/L (3.5-5.1); Sodium 138 mmol/L (136-145)
[2023-04-16 06:03] LABS: Anion Gap 4 (5-15); Calcium 9.1 mg/dL (8.7-10.4); Carbon Dioxide 29 mmol/L (20-30)
[2023-04-16 06:08] LABS: BUN/Creatinine Ratio 14.3 (10.0-20.0); Blood Urea Nitrogen 10 mg/dL (9-23); Glucose 120 mg/dL (74-106)
[2023-04-16] MEDS: APIXABAN 5 MG TAB PO SCH (09:56)
[2023-04-16] MEDS ORDERED: LEVO500T91 PO (11:13)
== END 2023-04-16 15:24 | disposition home or self-care (01) | DRG 189 ==
LOC: ER 13:37 → EDBD 13:37 → TELE 04-15 02:25 → TELE-WESTW 04-15 10:51
PROVIDERS: ADMIT Nurse Practitioner; ATTEND Family Medicine
DX: J96.21 Acute and chronic respiratory failure with hypoxia (principal); J44.1 Chronic obstructive pulmonary disease with (acute) exacerbation; E66.01 Morbid (severe) obesity due to excess calories; I10 Essential (primary) hypertension; Z20.822 Contact with and (suspected) exposure to COVID-19; Z68.38 Body mass index [BMI] 38.0-38.9, adult; Z79.01 Long term (current) use of anticoagulants; Z88.0 Allergy status to penicillin; Z86.711 Personal history of pulmonary embolism; Z86.718 Personal history of other venous thrombosis and embolism
CPT/HCPCS: 36415; 71045; 80048; 80053; 81001; 83605; 84484; 85025; 87040; 87426; 93005; 94640; C9113; G0378; J0696; J1100